=== PATIENT | female | born 1970 | race Caucasian/White ===

== ENCOUNTER 2017-04-07 23:34 | Emergency (ER) | payer SELFPAY ==
[2017-04-07 23:45] VITALS: BP 121/61
[2017-04-08 00:06] LABS: BILIRUBIN,URINE NEGATIVE (NEGATIVE); CLARITY,URINE CLEAR (CLEAR); GLUCOSE, URINE (UA) NEGATIVE (NEGATIVE); KETONES,URINE (UA) NEGATIVE (NEGATIVE); LEUKOCYTE ESTERASE, URINE NEGATIVE (NEGATIVE); NITRITE,URINE NEGATIVE (NEGATIVE); OCCULT BLOOD,URINE LARGE (NEGATIVE); PROTEIN,URINE NEGATIVE (NEGATIVE); UROBILINOGEN,URINE 0.2 (NORMAL) E.U./dL (NORMAL)
[2017-04-08] MEDS ORDERED: LOPERAMIDE 2 MG CAPSULE PO STA (00:06)
[2017-04-08] MEDS ORDERED: ONDANSETRON ODT 4 MG TABLET TL STA (00:06)
[2017-04-08] MEDS ORDERED: DICYCLOMINE 10 MG CAPSULE PO STA (00:06)
[2017-04-08 00:07] LABS: HCG UR QUAL NEGATIVE
[2017-04-08 00:14] LABS: BACTERIA,URINE Rare /HPF (None Seen); RBC,URINE TNTC /HPF (0-5); SQUAMOUS EPITHELIAL CELL,UR FEW Squamous (<= Few)
--- NOTE | 2017-04-08 00:18 | ED Physician Documentation ---
PD HPI NVD - Stated complaint Stated Complaint: ABD PX - Chief complaint Chief Complaint: Abd Pain - History obtained from History obtained from: Patient, Family - History of Present Illness Timing - onset: Yesterday Timing - details: Abrupt onset, Still present Associated symptoms: Abdominal pain Contributing factors: Sick contact Similar symptoms before: Work up / diagnostics, Treatment Recently seen: Not recently seen - Additonal information Additional information: Patient is a 46 year old female with no significant past medical history who is presenting to the emergency department for diarrhea. Patient states that everyone in her house has been sick with flu like symptoms. patient reported that she was feeling ok for a couple of days, but her granchild got sick at the library and she caught what he had. Patient states that everytime she tries to eat anything she has diarrhea. Patient denies nausea or vomiting. Patient denies blood or mucus in the stool. Review of Systems Constitutional: denies: Fever, Chills Eyes: reports: Reviewed and negative Ears: reports: Reviewed and negative Nose: reports: Reviewed and negative Throat: reports: Reviewed and negative Cardiac: denies: Chest pain / pressure, Palpitations Respiratory: denies: Dyspnea, Cough, Wheezing GI: reports: Abdominal Pain, Abdominal Swelling, Nausea, Diarrhea. 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 - Present Medications Home Medications: Ambulatory Orders Medication Instructions Recorded Confirmed Dicyclomine [Bentyl] 10 mg PO QID #14 capsule 04/08/17 Loperamide HCl [Loperamide] 2 mg PO Q4HR PRN #15 capsule 04/08/17 Ondansetron Odt [Zofran] 4 mg TL Q6H PRN #20 tablet 04/08/17 - Allergies Allergies/Adverse Reactions: Allergies Allergy/AdvReac Type Severity Reaction Status Date / Time No Known Drug Allergies Allergy Verified 04/07/17 23:44 - Social History Does the pt smoke?: Yes Smoking Status: Current every day smoker Does the pt drink ETOH?: No Does the pt have substance abuse?: No - Immunizations Immunizations are current?: No - POLST Patient has POLST: No PD ED PE NORMAL - Vitals Vital signs reviewed: Yes - General General: Alert and oriented X 3, No acute distress, Well developed/nourished - HEENT HEENT: Atraumatic, Moist mucous membranes - Neck Neck: Supple, no meningeal sign - Cardiac Cardiac: RRR, No murmur - Respiratory Respiratory: No respiratory distress - Abdomen Abdomen: Soft, Non distended - Derm Derm: Normal color, Warm and dry, No rash - Extremities Extremities: No deformity, Normal ROM s pain - Neuro Neuro: Alert and oriented X 3, No motor deficit, No sensory deficit, Normal speech - Psych Psych: Normal mood PD ED PE EXPANDED - Abdomen Abdomen: Tender to palpation (minimal tenderness to palpation) Results - Vitals Vitals: Vital Signs - 24 hr 04/07/17 04/08/17 23:41 00:35 Temperature 36.7 C Heart Rate 78 Respiratory 17 Rate Blood Pressure 121/61 O2 Saturation 96 Oxygen O2 Source Room air - Labs Labs: Laboratory Tests 04/07/17 23:47 Urine Color YELLOW Urine Clarity CLEAR Urine pH 6.0 Ur Specific [place] 1.010 Urine Protein NEGATIVE Urine Glucose (UA) NEGATIVE Urine Ketones NEGATIVE Urine Occult Blood LARGE H Urine Nitrite NEGATIVE Urine Bilirubin NEGATIVE Urine Urobilinogen 0.2 (NORMAL) Ur Leukocyte Esterase NEGATIVE Urine RBC TNTC H Urine WBC 0-3 Ur Squamous Epith Cells FEW Squamous Urine Bacteria Rare Ur Microscopic Review INDICATED Urine Culture Comments NOT INDICATED Urine HCG, Qual NEGATIVE PD MEDICAL DECISION MAKING - ED course Complexity details: reviewed old records, reviewed results, re-evaluated patient , considered differential, d/w patient, d/w family ED course: Patient was seen and examined at bedside. Patient's vital signs were within normal limits. Patient was able to tolerate PO without difficulty. patient was treated with zofran, loperamide and bentyl. Patient required no further work up and was stable for discharge with outpatient follow up. Departure - Departure Disposition: 01 Home, Self Care Clinical Impression: Gastroenteritis Instructions: ED Gastroenteritis Viral Follow-Up: primary,care provider [Other] - As Needed Prescriptions: Loperamide HCl [Loperamide] 2 mg PO Q4HR PRN #15 capsule PRN Reason: Diarrhea Dicyclomine [Bentyl] 10 mg PO QID #14 capsule Ondansetron Odt [Zofran] 4 mg TL Q6H PRN #20 tablet PRN Reason: Nausea / Vomiting Comments: Your symptoms are likely viral in nature and should get better over the next week. It is important to stay well hydrated with gatorade or other electrolyte solution. You can motrin, tylenol or bentyl for abdominal pain, and the loperamide for the diarrhea. You should follow up with your doctor if the symptoms persist. You may return to the emergency department at any time for new, worsening or uncontrollable symptoms. Discharge Date/Time: 04/08/17 00:35
== END 2017-04-08 00:35 | disposition home or self-care (01) ==
LOC: ED 23:34
DX: K52.9 Noninfective gastroenteritis and colitis, unspecified (principal); F17.200 Nicotine dependence, unspecified, uncomplicated
CPT/HCPCS: 81001; 81025; 99283; 99284; A9270; Q0162; 81003; 87086

== ENCOUNTER 2021-04-30 11:34 | Outpatient (CLI) | payer OTHER ==
--- NOTE | 2021-05-09 08:38 | Mammography Report ---
BILATERAL DIGITAL SCREENING MAMMOGRAM 3D/2D: 04/30/2021 CLINICAL: Routine screening. No prior exams were available for comparison. There are scattered fibroglandular elements in both br easts. No significant masses, calcifications, or other findings are seen in either breast. IMPRESSION: NEGATIVE There is no mammographic evidence of malignancy. A 1 year screening mammogram is recommended. This exam was interpreted at Station ID: [id number]. NOTE: For mammograms, a report in lay terms will be sent to the patient. Approximately 15% of breast malignancies will not be visualized mammographically. In the management of a palpable breast mass, a negative mammogram must not discourage biopsy of a clinically suspicious lesion. Electronically Signed By: Taryn batres/merrick:05/08/2021 08:58:34 ACR BI-RADS Category 1: Negative 3341F PARENCHYMAL PATTERN: (A) - The breast(s) demonstrate(s) scattered fibroglandular densities. BI-RADS CATEGORY: (1) - 1 RECOMMENDATION: (ANNUAL) - Recommend routine annual screening mammography. [id number] 1 year screening LATERALITY: (B)
== END 2021-04-30 11:35 | disposition home or self-care (01) ==
LOC: DI.N 11:34
DX: Z12.31 Encounter for screening mammogram for malignant neoplasm of breast (principal)

== ENCOUNTER 2021-09-18 09:29 | Day surgery (SDC) | payer OTHER ==
[2021-09-18] MEDS ORDERED: LACTATED RINGERS 1,000 ML IV ONE ×2 (09:44→11:14)
--- NOTE | 2021-09-18 09:48 | ANESTHESIA ---
Pre-Anesthesia VS, & Labs Height: 5 ft 5 in - NPO >8 hours - Is Patient ?: No - Lab Results Lab results reviewed: Yes <Jon Pitts - Last Filed: 09/18/21 09:47> - Diagnosis screening (Jon Pitts) - Procedure colonoscopy (Jon Pitts) Vital Signs: Temp Pulse Resp BP Pulse Ox 36.7 C 70 16 145/58 H 98 09/18/21 09:44 09/18/21 09:44 09/18/21 09:44 09/18/21 09:44 09/18/21 09:44 Home Medications and Allergies <Jon Pitts - Last Filed: 09/18/21 09:47> <Gladys Dawson - Last Filed: 09/18/21 10:16> Home Medications: Ambulatory Orders Ibuprofen [Advil] 200 mg PO PRN PRN 09/17/21 Ibuprofen [Advil] 200 mg PO PRN PRN 09/17/21 Allergies/Adverse Reactions: Allergies Allergy/AdvReac Type Severity Reaction Status Date / Time No Known Drug Allergies Allergy Verified 04/07/17 23:44 Anes History & Medical History - Medical History Cardiovascular: reports: None Pulmonary: reports: None Gastrointestinal: reports: None Urinary: reports: None Musculoskeletal: reports: None Endocrine/Autoimmune: reports: None Skin: reports: None Smoking Status: Current every day smoker - Surgical History Gynecologic: reports: section, Tubal ligation <Jon Pitts - Last Filed: 09/18/21 09:47> - Anesthetic History Anesthesia Complications: reports: No previous complications Family history of Anesthesia Complications: Denies Family history of Malignant Hyperthermia: Denies - Medical History Psychosocial: reports: No issues indicated History of Cancer?: Yes (basal carcinoma, skin, right eye) <Gladys Dawson - Last Filed: 09/18/21 10:16> Exam General: Alert, Oriented x3 Dental: WNL Mouth Opening: Greater than 4 Fingerbreadths Neck Mobility: Normal Mallampati classification: I Thyromental Distance: 4-6 cm Respiratory: Lungs clear Cardiovascular: Regular rate, Normal S1, Normal S2, No murmurs Mental/Cognitive Status: Alert/Oriented X3, Normal for patient Cognitive Status: Within normal limits <Gladys Dawson - Last Filed: 09/18/21 10:16> Plan Anesthesia Type: Total IV Code Status: Attempt Resuscitation <Jon Pitts - Last Filed: 09/18/21 09:47> Consent for Procedure(s) Verified and Reviewed: Yes ASA classification: 2-Mild systemic disease Is this case an emergency?: No <Gladys Dawson - Last Filed: 09/18/21 10:16>
[2021-09-18] MEDS ORDERED: MIDAZOLAM 2 MG/2 ML VIAL ONE (10:36)
[2021-09-18] MEDS ORDERED: LIDOCAINE-MPF 2% 5 ML VIAL ONE (10:36)
[2021-09-18] MEDS ORDERED: PROPOFOL 500 MG/50 ML 500 MG/50 ML VIAL ONE (10:37)
[2021-09-18 11:48] VITALS: BP 143/54
--- NOTE | 2021-09-18 12:27 | ANESTHESIA POST OP EVALUATION ---
Anesthesia Post Eval - Post Anesthesia Eval Vitals: Last Vital Signs Temp 36.2 C L 09/18/21 11:47 Pulse 52 L 09/18/21 11:47 Resp 16 09/18/21 11:47 BP 143/54 H 09/18/21 11:47 Pulse Ox 99 09/18/21 11:47 CV Function Including HR & BP: Stable Pain Control: Satisfactory Nausea & Vomiting: Negative Mental Status: Baseline Respiratory Status: Airway Patent Hydration Status: Satisfactory Anesthesia Complications: None
== END 2021-09-18 09:30 | disposition home or self-care (01) ==
LOC: SDS 09:29
PROVIDERS: ATTEND Surgery
PROC: 0DBN8ZX Excision of Sigmoid Colon, Via Natural or Artificial Opening Endoscopic, Diagnostic (ICD-10-PCS; principal; 2021-09-18 11:15)
DX: Z12.11 Encounter for screening for malignant neoplasm of colon (principal); D12.5 Benign neoplasm of sigmoid colon
CPT/HCPCS: 45380; J7120

== ENCOUNTER 2023-02-17 13:56 | Outpatient (CLI) | payer OTHER ==
--- NOTE | 2023-02-17 17:23 | XRAY Report ---
PROCEDURE: Cervical Spine 2 View INDICATIONS: NECK PAIN TECHNIQUE: 3 view(s) of the cervical spine were acquired. COMPARISON: None. FINDINGS: Bones: On odontoid view, normal C1 on C2 alignment. There is slight reversal of normal cervical lordo sis. Trace, likely degenerative anterolisthesis of C3 on C4 and C4 on C5. Mild to moderate degenerative changes, most focally involving C5-C6. Soft tissues: No pathologic prevertebral soft tissue swelling. IMPRESSION: Mild to moderate degenerative changes, particularly at C5-C6. Slight reversal of the normal cervical lordosis with trace multilevel degenerative anterolisthesis. If there is high concern for further surendra angement, consider MRI evaluation. Reviewed by: Cuate Tinsley MD on 02/17/2023 5:21 PM PST Approved by: Cuate Tinsley MD on 02/17/2023 5:21 PM PST Station ID: [id number]
== END 2023-02-17 13:57 | disposition home or self-care (01) ==
LOC: DI.N 13:56
PROVIDERS: ATTEND Physician Assistant Medical
DX: M47.812 Spondylosis without myelopathy or radiculopathy, cervical region (principal); M43.12 Spondylolisthesis, cervical region

== ENCOUNTER 2023-07-27 09:12 | Outpatient (CLI) | payer OTHER ==
--- NOTE | 2023-07-28 09:14 | Mammography Report ---
BILATERAL DIGITAL SCREENING MAMMOGRAM 3D/2D: 07/27/2023 CLINICAL: Routine screening. Comparison is made to exam dated: 04/30/2021 mammogram - [facility]. There are scattered areas of fibroglandular density in both breasts (category b / 25%-50% glandular t issue). No significant masses, calcifications, or other findings are seen in either breast. There has been no significant interval change. IMPRESSION: NEGATIVE There is no mammographic evidence of malignancy. A 1 year screening mammogram is recommended. Based on the Tyrer Cuzick model (a risk assessment model) the patient's lifetime risk is 6.5% and her 10 year risk is 2.0%. According to the ACR, ACS, and NCCN guidelines, an annual breast MRI exam umair g with mammogram is recommended if the patient's lifetime risk is 20% or greater. This exam was interpreted at Station ID: [id number]. NOTE: For mammograms, a report in lay terms will be sent to the patient. Approximately 15% of breast malignancies will not be visualized mammographically. In the management of a palpable breast mass, a negative mammogram must not discourage biopsy of a clinically suspicious lesion. Electronically Signed By: Shady rodarte/merrick:07/27/2023 16:15:46 letter sent: No_Letter ACR BI-RADS Category 1: Negative 3341F PARENCHYMAL PATTERN: (A) - The breast(s) demonstrate(s) scattered fibroglandular densities. BI-RADS CATEGORY: (1) - 1 RECOMMENDATION: (ANNUAL) - Recommend routine annual screening mammography. [id number] 1 year screening LATERALITY: (B)
== END 2023-07-27 09:13 | disposition home or self-care (01) ==
LOC: DI.N 09:12
PROVIDERS: ATTEND Nurse Practitioner
DX: Z12.31 Encounter for screening mammogram for malignant neoplasm of breast (principal); R92.323 Mammographic fibroglandular density, bilateral breasts